=== PATIENT | male | born 1985 | race Caucasian/White ===

== ENCOUNTER 2017-07-22 11:30 | Emergency (ER) | payer SELFPAY ==
[~2017-07-22] VITALS: Ht 172.7 cm; Wt 75.0 kg
[2017-07-22 11:33] VITALS: BP 133/74; PULSE 70; RESP 19; TEMP 97.5; O2SAT 99
[2017-07-22] MEDS ORDERED: CYCL10TA PO (12:08)
[2017-07-22] MEDS ORDERED: IBUP1TAB7 PO (12:08)
--- NOTE | 2017-07-22 12:11 | PD ---
HPI Chief Complaint: Back/ Neck Pain or Injury Time Seen by Provider: 11:47 Travel History International Travel<30 days: No Contact w/Intl Traveler<30days: No Traveled to known affect area: No History of Present Illness HPI 31-year-old male with complaint of mid back pain. Rated 7/10, cramping, worsened by certain motions, picking up his children. 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 He denies radiation of the pain, fevers, chills, nausea, vomiting, dysuria, hematuria. Endorses previous injury to his back one year ago but cannot remember the diagnosis. Treated at home with anti- inflammatories with no improvement of symptoms. PFSH Social History Tobacco Use: Yes Allergies-Medications (Allergen,Severity, Reaction): Coded Allergies: No Known Allergies (Unverified , 07/22/17) Reported Meds & Prescriptions Reported Meds & Active Scripts Active Flexeril (Cyclobenzaprine HCl) 10 Mg Tab 10 Mg PO TID Ibuprofen 800 Mg Tab 800 Mg PO Q8H Review of Systems Except as stated in HPI: all other systems reviewed are Neg Physical Exam Narrative GENERAL: Well-nourished, well-developed white male no acute distress. SKIN: Focused skin assessment warm/dry. HEAD: Normocephalic. EYES: No scleral icterus. No injection or drainage. NECK: Supple, trachea midline. No JVD or lymphadenopathy. CARDIOVASCULAR: Regular rate and rhythm without murmurs, gallops, or rubs. RESPIRATORY: Breath sounds equal bilaterally. No accessory muscle use. GASTROINTESTINAL: Abdomen soft, non-tender, nondistended. MUSCULOSKELETAL: No cyanosis, or edema. BACK: No obvious deformity. No CVA tenderness. Tenderness of the paraspinal musculature in the mid thoracic spine. No midline tenderness. No lumbar tenderness. Straight leg raise negative bilaterally. Data Data Last Documented VS Vital Signs Date Time Temp Pulse Resp B/P (MAP) Pulse Ox O2 Delivery O2 Flow Rate FiO2 07/22/17 11:33 97.5 70 19 133/74 (93) 99 Orders Orders Ketorolac Inj (Toradol Inj) (07/22/17 12:15) Orphenadrine Inj (Norflex Inj) (07/22/17 12:15) Acetamin-Hydrocod 325-5 Mg ([place] 5-325 (07/22/17 12:15) Ed Discharge Order (07/22/17 12:08) [facility] Medical Decision Making Medical Screen Exam Complete: Yes Emergency Medical Condition: Yes Differential Diagnosis Musculoskeletal pain versus muscle spasm versus pyelonephritis versus other Narrative Course 31-year-old male with complaint of mid back pain. Rated 7/10, cramping, worsened by certain motions, picking up his children. 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 He denies radiation of the pain, fevers, chills, nausea, vomiting, dysuria, hematuria. Endorses previous injury to his back one year ago but cannot remember the diagnosis. Vitals reviewed. On exam the patient has tenderness to palpation of the paraspinal musculature in the mid thoracic spine, otherwise reassuring. Patient was administered IM Toradol in Norflex along with a 5 mg dose of [place]. He is prescribed a short course of anti-inflammatories and muscle relaxants. He is instructed to return to normal , gentle activities as tolerated, avoid driving while taking muscle relaxants, follow with the primary care provider. He stable and discharged home. Diagnosis Primary Impression: Musculoskeletal back pain Referrals: Primary Care Physician Additional Instructions: Rest, hydrate. Return to normal, gentle activities as tolerated. No heavy lifting or overuse for the next few days. Take medications as prescribed. Do not drive when taking muscle relaxants as they can cause drowsiness. Warm or cold compresses applied 10-15 min/h a few times a day may also help to improve symptoms. Gentle massage may also help to improve symptoms. Follow-up with the primary care provider. Return to the ED for worsening symptoms or any urgent or emergent medical condition. Med/Other Pt SpecificInfo: Prescription(s) given Scripts Cyclobenzaprine (Flexeril) 10 Mg Tab 10 MG PO TID for Muscle Spasm, #12 TAB 0 Refills Prov: Bennett Mccall MD 07/22/17 Ibuprofen (Ibuprofen) 800 Mg Tab 800 MG PO Q8H, #15 TAB 0 Refills Prov: Bennett Mccall MD 07/22/17 Disposition: 01 DISCHARGE HOME Condition: Stable Kiki Hernandez July 22, 2017 12:11
[2017-07-22] MEDS ORDERED: ACETAMINOPHEN/HYDROcodone 325 MG/5 MG TAB PO ONE (12:15)
[2017-07-22] MEDS ORDERED: ORPHENADRINE INJ 60 MG/2 ML AMP IM ONE (12:15)
[2017-07-22] MEDS ORDERED: KETOROLAC TROMETHAMINE 60 MG/2 ML (IM) VIAL IM ONE (12:15)
== END 2017-07-22 12:37 | disposition home or self-care (01) ==
LOC: NEPK 11:30
DX: M54.9 Dorsalgia, unspecified (principal); Z72.0 Tobacco use
CPT/HCPCS: 96372; 99283; J1885; J2360